=== PATIENT | female | born 1965 | race Caucasian/White ===

== ENCOUNTER → 2020-05-30 | Outpatient (CLI) | payer BC ==
--- NOTE | 2020-05-31 14:46 | KCIC ---
Bilateral digital screening mammograms: Reason for examination: Routine screening. Comparison is made to previous studies dated back to 02/09/2015. Interpretation was made with the benefit of CAD. The skin and nipples show no abnormalities. No abnormal axillary lymph nodes are seen. The breast parenchyma shows scattered fibroglandular density. (Breast density: Category B.) There appear to be nodular densities at the 9:00 position anteriorly approximately 3 cm from the nipple in the right breast measuring 7 mm in size and at the 6:30 position approximately 5.5 cm from the nipple in the right breast and measuring 7 mm in size. Further evaluation with ultrasound is recommended. There are no other new dominant masses, suspicious calcifications or architectural distortions. Impression: Small nodular parenchymal densities in the right breast at the 9:00 position 3 cm from the nipple measuring 7 mm in size and at the 6:30 position 5.5 cm from the nipple measuring 7 mm in size. Recommend further evaluation with ultrasound. BI-RADS Category 0: Incomplete. Needs additional imaging evaluation. "Our facility is accredited by the [employer] Mammography [employer]." This patient's information has been entered into a reminder system for the patient to be notified with the results of her examination and a target date for the next mammogram. Electronically signed by: Isabelle Thao MD (05/31/2020 2:43 PM) [id number]
== END ==
LOC: KCIC MAMMO 15:22
PROVIDERS: ATTEND Family Medicine
DX: Z12.31 Encounter for screening mammogram for malignant neoplasm of breast (principal); N63.13 Unspecified lump in the right breast, lower outer quadrant
CPT/HCPCS: 77067

== ENCOUNTER → 2020-06-27 | Outpatient (CLI) | payer BC ==
--- NOTE | 2020-06-27 14:06 | RAD ---
Examination: Limited right breast ultrasound. INDICATION: Screening recall for right breast nodules (at the 9:00 position 3 cm from the nipple and at the 6:30 o'clock position 5.5 cm from the nipple) COMPARISON: 05/30/2020, 03/15/2016, 02/09/2015, 09/30/2013 TECHNIQUE: Targeted ultrasound of the lower-outer quadrant right breast was performed with grayscale and color Doppler imaging. FINDINGS: In the right 9:00 position, a sonographically benign 8 mm oval parallel orientation circumscribed superficial nodule is identified 3 cm from the nipple that shows low level internal echoes and most likely represents a complicated cyst or fibroadenoma. Additional small cysts are identified with internal debris at the 6:30 o'clock position 5.5 cm from the nipple, possibly reflecting interval collapse in size of the mammographic finding at this location initially recalled from screening. IMPRESSION: Probably benign nodularity in the right breast. Recommend six-month follow-up right diagnostic mammogram. Discussed with patient BI-RADS Category 3 Probably benign findings
== END ==
LOC: US 10:25
PROVIDERS: ATTEND Family Medicine
DX: R92.8 Other abnormal and inconclusive findings on diagnostic imaging of breast (principal); N63.13 Unspecified lump in the right breast, lower outer quadrant; N60.01 Solitary cyst of right breast
CPT/HCPCS: 76641

== ENCOUNTER → 2021-01-11 | Outpatient (CLI) | payer BC ==
--- NOTE | 2021-01-11 14:53 | RAD ---
EXAM: Right breast diagnostic mammogram with tomosynthesis; right breast sonogram. HISTORY: 55-year-old female presents for follow-up evaluation of nodularity within the right breast d emonstrated on a prior mammogram and sonogram. TECHNIQUE: Full-field digital craniocaudal, true lateral and mediolateral oblique 2D and 3D tomosynth esis images of both breasts are obtained for evaluation. Computer aided detection was applied. Sonogr aphic imaging of the right breast targeted to sites of mammographic nodularity was also performed. COMPARISON: 06/27/2020, 05/30/2020, 03/15/2016 BREAST PARENCHYMAL DENSITY: Level B - Scattered fibroglandular densities. FINDINGS: There are stable areas of asymmetry and nodularity within the right breast when allowing fo r differences in technique. No convincing architectural distortion or suspicious calcification is see n. Sonographic imaging of the right breast demonstrates a 6 mm cyst at the 9:00 position 3 cm from the n ipple. This more simple in appearance compared to the prior exam. There is a stable 3 mm suspected be nign complicated cyst or fibrocystic lesion at the 7:00 position 5 cm from the nipple. No additional lesion is seen. There are benign axillary lymph nodes. IMPRESSION: 1. Stable areas of nodularity and asymmetry within the right breast, component of which likely corres ponds with a cyst and possible fibrocystic lesion demonstrated sonographically. 2. BI-RADS Category 3: Probably benign finding(s). Repeat short term follow up with a diagnostic mamm ogram and sonogram in 5 months is recommended to confirm longer-term stability and correspond with th e previously established mammography interval. If your mammogram demonstrates that you have dense breast tissue, which could hide abnormalities, and if you have other risk factors for breast cancer that have been identified, you might benefit from s upplemental screening tests that may be suggested by your ordering physician. Dense breast tissue, i n and of itself, is a relatively common condition. This information is not provided to cause undue c oncern, but rather to raise your awareness and to promote discussion with your physician regarding th e presence of other risk factors, in addition to dense breast tissue. A report of your mammography re sults will be sent to you and your physician. You should contact your physician if you have any ques tions or concerns regarding this report. Mammography is a sensitive method for finding small breast cancers, but it does not detect them all a nd is not a substitute for careful clinical examination. A negative mammogram does not negate a clin ically suspicious finding and should not result in delay in biopsying a clinically suspicious abnorma lity. PQRS compliance statement - Patient information was entered into a reminder system with a target due date for the next mammogram. "Our facility is accredited by the [employer] Mammography [employer]." Electronically signed by: Cindy Gaona MD (01/11/2021 2:51 PM) [id number]
== END ==
LOC: MAMMO 14:00
PROVIDERS: ATTEND Family Medicine
DX: N60.01 Solitary cyst of right breast (principal); N63.10 Unspecified lump in the right breast, unspecified quadrant
CPT/HCPCS: 76641; 77065; G0279; 77061

== ENCOUNTER → 2021-07-05 | Outpatient (CLI) | payer BC ==
--- NOTE | 2021-07-05 14:44 | RAD ---
EXAM: Bilateral digital diagnostic mammogram with tomosynthesis; bilateral breast sonogram. HISTORY: 56-year-old female presents for follow-up evaluation of nodularity and asymmetry within the right breast. The patient is due for bilateral mammography. TECHNIQUE: Full-field digital craniocaudal and mediolateral oblique 2D and 3D tomosynthesis images of both breasts are obtained for evaluation. Computer aided detection was applied. Sonographic imaging of both breasts targeted to areas of mammographic nodularity was also performed. COMPARISON: Sonograms dated 01/11/2021 and 06/27/2020. Mammograms dated 05/30/2020 and 01/11/2021. BREAST PARENCHYMAL DENSITY: Level B - Scattered fibroglandular densities. FINDINGS: There are multiple areas of asymmetry and nodularity within both breasts. This is slightly increased in the lateral subareolar aspect of the left breast compared to the prior study. Not signif icantly the additional areas of asymmetry and nodularity are not significantly changed when allowing for differences in technique. There is no suspicious calcification or architectural distortion. Sonographic imaging of the right breast demonstrates a 3 mm benign complicated cyst or fibrocystic le marco at the 7:00 position 5 cm from the nipple. There is a 7 mm cyst with adjacent ductal ectasia wit hin the 9:00 position 3 cm from the nipple. There is no suspicious axillary lymph node. Sonographic imaging of the left breast demonstrates a 5 mm cyst or focally dilated duct at the 10:00 retroareolar location. This likely accounts for increasing mammographic nodularity in this location. There is no suspicious sonographic finding. There is no suspicious axillary lymph node. IMPRESSION: 1. No new suspicious mammographic or sonographic finding. 2. Benign cystic and fibrocystic lesions and dilated ducts described above. RECOMMENDATION: BI-RADS Category 2: Benign finding(s). Annual mammography is recommended. If your mammogram demonstrates that you have dense breast tissue, which could hide abnormalities, and if you have other risk factors for breast cancer that have been identified, you might benefit from s upplemental screening tests that may be suggested by your ordering physician. Dense breast tissue, i n and of itself, is a relatively common condition. This information is not provided to cause undue c oncern, but rather to raise your awareness and to promote discussion with your physician regarding th e presence of other risk factors, in addition to dense breast tissue. A report of your mammography re sults will be sent to you and your physician. You should contact your physician if you have any ques tions or concerns regarding this report. Mammography is a sensitive method for finding small breast cancers, but it does not detect them all a nd is not a substitute for careful clinical examination. A negative mammogram does not negate a clin ically suspicious finding and should not result in delay in biopsying a clinically suspicious abnorma lity. PQRS compliance statement - Patient information was entered into a reminder system with a target due date for the next mammogram. "Our facility is accredited by the [employer] Mamm[employer]." Electronically signed by: Cindy Gaona MD (07/05/2021 2:41 PM) [id number]
== END ==
LOC: MAMMO 13:15
PROVIDERS: ATTEND Family Medicine
DX: N60.12 Diffuse cystic mastopathy of left breast (principal); N60.11 Diffuse cystic mastopathy of right breast; R92.8 Other abnormal and inconclusive findings on diagnostic imaging of breast
CPT/HCPCS: 76641; 77066; G0279; 77062